=== PATIENT | female | born 1995 | race Caucasian/White ===

== ENCOUNTER 2023-11-16 19:13 | Emergency (ER) | payer MEDICAID ==
[~2023-11-16] VITALS: Ht 152.4 cm; Wt 135.2 kg
[2023-11-16 19:17] VITALS: BP_SYST 132; PULSE 100; RESP 20; TEMP 98; O2SAT 96
[2023-11-16 20:18] LABS: BASOPHILS % (AUTO) 0.5 % (0.0-2.0); EOSINOPHILS # (AUTO) 0.2 K/uL (0.0-0.4); HEMATOCRIT 39.9 % (36-48); HEMOGLOBIN 13.5 g/dL (12.0-16.0); LYMPHOCYTES # (AUTO) 1.2 K/uL (1.0-5.5); LYMPHOCYTES % (AUTO) 12.1 % (20.5-51.5); MEAN CORPUSCULAR HEMOGLOBIN 27 pg (27-31); MEAN CORPUSCULAR HGB CONC 34 % (32-36); MEAN CORPUSCULAR VOLUME 80 fL (79.0-98.0); MONOCYTES # (AUTO) 0.7 K/uL (0.0-1.0); MONOCYTES % (AUTO) 6.7 % (1.7-9.3); NEUTROPHILS # (AUTO) 8.1 K/uL (1.8-7.7); NEUTROPHILS % (AUTO) 78.7 % (40.0-70.0); PLATELET COUNT (AUTO) 337 K/uL (130-430); RED BLOOD CELL COUNT(AUTO) 4.98 MIL/uL (4.2-6.2); RED CELL DISTRIBUTION WIDTH 13.7 % (9.0-15.0); WHITE BLOOD COUNT (AUTO) 10.3 K/uL (4.8-10.8)
[2023-11-16 20:19] LABS: CALCIUM 9.6 mg/dL (8.4-11.0); CREATININE 0.93 mg/dL (0.55-1.30); POTASSIUM 4.2 mmol/L (3.5-5.1)
[2023-11-16] MEDS: DIPHENHYDRAMINE INJ 50 MG/ML VIAL IVP ONE (20:19)
[2023-11-16] MEDS: METOCLOPRAMIDE HCL 10 MG/2 ML VIAL IVP ONE (20:22)
[2023-11-16 20:23] LABS: ALBUMIN 3.5 g/dL (3.4-4.8); BILIRUBIN,DIRECT 0.2 mg/dL (0.0-0.3); TOTAL BILIRUBIN 0.4 mg/dL (0.0-1.0); TOTAL PROTEIN, SERUM 7.4 g/dL (6.4-8.3)
[2023-11-16] MEDS: NACL 0.9% 1,000 ML IV ONE (20:25)
[2023-11-16 20:29] LABS: BILIRUBIN,URINE 1+ (NEGATIVE); BLOOD, URINE 1+ (NEGATIVE); CLARITY/URINE SL CLOUDY (CLEAR); COLOR,URINE YELLOW (YELLOW); GLUCOSE,URINE TRACE (NEGATIVE); KETONES,URINE 3+ (NEGATIVE); LEUKOCYTE ESTERASE ,URINE NEGATIVE (NEGATIVE); NITRITE, URINE NEGATIVE (NEGATIVE); PH,URINE 6.5 (5.0-8.0); PROTEIN URINE 1+ (NEGATIVE)
[2023-11-16 20:39] LABS: SERUM HCG (QUALITATIVE) NEGATIVE (NEGATIVE)
[2023-11-16 20:46] LABS: BACTERIA,URINE FEW /HPF (None Seen); WBC,URINE 0-3 /HPF (0-3)
[2023-11-16] MEDS: MORPHINE 4 MG INJ. 4 MG/ML VIAL IVP ONE (23:30)
[2023-11-16] MEDS: ONDANSETRON HCL 4 MG/2 ML VIAL IVP ONE (23:33)
[2023-11-16] MEDS: FAMOTIDINE PF 20 MG/2 ML VIAL IVP ONE (23:42)
[2023-11-17] MEDS ORDERED: ONDA-8 TL (00:12)
[2023-11-17] MEDS ORDERED: DIF100 PO (00:12)
[2023-11-17] MEDS ORDERED: CEPH250C PO (00:12)
[2023-11-17] MEDS ORDERED: OMEP40CA20 PO (00:12)
[2023-11-17 00:40] VITALS: BP_SYST 136; PULSE 90; RESP 16; TEMP 98.1; O2SAT 98
== END 2023-11-17 00:40 | disposition home or self-care (01) ==
LOC: SED 19:13
DX: N30.00 Acute cystitis without hematuria (principal); R11.10 Vomiting, unspecified; Z98.84 Bariatric surgery status
CPT/HCPCS: 99285; 74177; 96374; 96375; 96361; 80076; 80048; 81001; 84703; 83690; 85025; 87040; 87086; 36415; 83605; J3490; J2765; J2405; J2270; J7030; 81000; 81015